=== PATIENT | male | born 1965 | race Caucasian/White ===

== ENCOUNTER 2017-08-07 18:12 | Emergency (ER) | payer OTHER ==
[~2017-08-07] VITALS: Ht 172.7 cm; Wt 106.9 kg
[~2017-08-07 18:12] MED LIST: FLEXERIL10 MG PO; MOTRIN800 MG PO; VIBRAMYCIN100 MG PO
[2017-08-07 22:30] LABS: HEMATOCRIT 45.5 % (38.0-50.0); HEMOGLOBIN 15.6 G/DL (12.5-16.6); MCH 29.8 PG (29.0-34.0); MCHC 34.3 G/DL (30.0-36.0); MCV 86.8 FL (86-99); PLATELET COUNT 301 K/uL (156-360); RBC DIS.WIDTH-CV 12.9 % (11.8-14.6); RBC DIS.WIDTH-SD 40.8 % (39-53); RED BLOOD COUNT 5.24 M/uL (4.00-5.50); WHITE BLOOD COUNT 10.4 K/uL (4.1-10.2)
[2017-08-07 22:43] LABS: ALBUMIN 4.6 g/dL (3.2-4.8); CHLORIDE 103 mEq/L (99-109); POTASSIUM 3.8 mEq/L (3.7-5.4); SODIUM 139 mEq/L (136-147)
[2017-08-07 22:46] LABS: GLUCOSE 78 mg/dL (70-99); TOTAL PROTEIN 8.2 g/dL (6.4-8.3)
[2017-08-07 22:48] LABS: TOTAL BILIRUBIN 0.8 mg/dL (0.0-1.0)
[2017-08-07 22:49] LABS: ALKALINE PHOSPHATASE 66 IU/L (3-129); GFR ESTIMATE (CALCULATED) > 59 mL/min/ (58.99-99999)
[2017-08-07 22:50] LABS: UREA NITROGEN (BUN) 16 mg/dL (9-23)
[2017-08-07 22:51] LABS: AST (GOT) 21 IU/L (2-34)
[2017-08-07 22:52] LABS: ALT (GPT) 22 IU/L (3-49)
[2017-08-08] MEDS ORDERED: NORCO 5/3251 TABLET PO (00:23)
[2017-08-08] MEDS ORDERED: BACTRIM,SEPT1 TABLET PO (00:23)
[2017-08-08 00:48] VITALS: BP 132/80
== END 2017-08-08 00:50 | disposition home or self-care (01) ==
LOC: EME 18:12
PROVIDERS: Physician Assistant
PROC: 0M9P3ZZ Drainage of Left Knee Bursa and Ligament, Percutaneous Approach (ICD-10-PCS; principal; 2017-08-07)
DX: M70.42 Prepatellar bursitis, left knee (principal); M25.462 Effusion, left knee; Z88.0 Allergy status to penicillin; Z88.6 Allergy status to analgesic agent; Z88.8 Allergy status to other drugs, medicaments and biological substances
CPT/HCPCS: 73564; 80053; 82945 91; 83605; 84157; 85027; 87040; 87070; 87205; 89051; 89060; 99281; 99285